=== PATIENT | female | born 1995 | race Caucasian/White ===

== ENCOUNTER → 2018-12-24 | Outpatient (CLI) | payer BC ==
--- NOTE | 2018-12-25 09:24 | MR ---
EXAMINATION TYPE: MR knee RT wo con DATE OF EXAM: 12/24/2018 COMPARISON: None HISTORY: Right Knee pain, x 2months TECHNIQUE: Multiplanar, multisequence imaging of the right knee is performed without IV contrast. FINDINGS: MEDIAL MENISCUS: There is intrasubstance signal involving the posterior horn medial meniscus appears to extend to the articular surface compatible with a linear tear. LATERAL MENISCUS: Anterior and posterior horns are intact without tear. CRUCIATE LIGAMENTS: The anterior and posterior cruciate ligaments are intact and unremarkable. COLLATERAL LIGAMENTS: The medial collateral ligament and lateral collateral ligament complex are inta ct and unremarkable. EXTENSOR MECHANISM: Visualized quadriceps and patellar tendons are intact. EFFUSION: No significant suprapatellar joint effusion. POPLITEAL CYST: No popliteal/ndiaye cyst. TRICOMPARTMENT SPACES: Joint spaces preserved with no evidence of erosive change CARTILAGE: There is be a focal cartilaginous defect involving the lateral patellar facet. BONE MARROW SIGNAL: There is diffuse abnormal marrow signal involving the patella. IMPRESSION: 1. Diffuse abnormal signal involving the bone marrow patella compatible with bone marrow edema or con tusion. No definite fracture line. 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 Correlate for history of trauma with bone contusion. 2. Posterior horn medial meniscus linear tear.
== END | disposition home or self-care (01) ==
LOC: RADMRIMAIN 18:47
PROVIDERS: ATTEND Orthopaedic Surgery
DX: S83.241A Other tear of medial meniscus, current injury, right knee, initial encounter (principal); M94.261 Chondromalacia, right knee